=== PATIENT | female | born 2000 | race Caucasian/White ===

== ENCOUNTER 2020-01-16 08:54 | Outpatient (CLI) | payer BC, SELFPAY ==
[2020-01-19 21:01] LABS: SARS-CoV-2 RNA Undetected (Undetected); SARS-CoV-2 Specimen Source Nasopharynx
== END 2020-01-16 09:14 ==
PROVIDERS: PCP Internal Medicine; Visit Provider Nurse Practitioner Family
DX: Z11.59 Encounter for screening for other viral diseases (principal)
CPT/HCPCS: U0003